=== PATIENT | female | born 1975 | race Caucasian/White ===

== ENCOUNTER → 2016-09-15 | Outpatient (REF) ==
--- NOTE | 2016-09-15 13:16 | REP ---
Right shoulder series: Three views. History: Degenerative disc disease. Findings: The right glenohumeral and acromioclavicular joints are normally aligned. There is mild osteoarthritic hypertrophy at the AC joint. There is a 6 mm well-circumscribed radiolucency in the distal clavicle consistent with a subcortical cyst. Bones, joints and soft tissues are otherwise unremarkable. Impression: Mild osteoarthritic spurring at the AC joint. Small subcortical cyst in the distal clavicle. Otherwise negative. Signed by Jesse Mendieta MD 09/15/2016 02:04 P
== END ==
LOC: M SMT 11:16
PROVIDERS: ATTEND Internal Medicine
DX: M54.5 Low back pain (principal)